=== PATIENT | male | born 1960 | race Caucasian/White ===

== ENCOUNTER 2016-12-02 06:30 | Day surgery (SDC) | payer MEDICAID, SELFPAY ==
[2016-12-02] MEDS ORDERED: Lactated Ringers 1,000 ML IV SCH (06:45)
[2016-12-02] MEDS ORDERED: fentaNYL 100 MCG/2 ML SDV ONE (07:19)
[2016-12-02] MEDS ORDERED: Midazolam 1 MG/ML 2 ML SDV ONE (07:19)
[2016-12-02] MEDS ORDERED: Propofol 200 MG/20 ML SDV ONE (07:19)
[2016-12-02 10:05] VITALS: BP 97/61
--- NOTE | 2016-12-02 12:13 | OR ---
DATE OF PROCEDURE: 12/02/2016 PREOPERATIVE DIAGNOSES: Diverticulosis and diarrhea. POSTOPERATIVE DIAGNOSES: Diverticulosis and diarrhea. PROCEDURE: Colonoscopy to the cecum with random colon biopsies. SURGEON: Hermes Ng MD. ANESTHESIA: IV anesthesia with monitored anesthesia care. INDICATION: This 56-year-old white male is referred for a colonoscopy because of chronic diarrhea. He says he last underwent a colonoscopy about 3 years ago. We know he has diverticulosis. I counseled him for the procedure including risks and alternatives, and he gave his informed consent to proceed. DESCRIPTION OF PROCEDURE: The patient was placed in the left lateral decubitus position. IV anesthesia was administered by the Anesthesia Service. Time-out was held. A rectal exam was performed, which was unremarkable. The flexible video Olympus colonoscope was introduced through his anus, up his rectum, and out his colon all the way to the cecum. Enroute, we saw multiple left-sided diverticula. There was no bleeding or inflammation associated with any of them. Once the cecum was reached, the scope was slowly withdrawn, examining the mucosa throughout. No additional mucosal abnormalities were noted. We did obtain random colonic biopsies throughout the entire colon to rule out microcytic colitis. The scope was retroflexed in the rectum with the distal rectum appearing unremarkable. The scope was straightened and removed. He tolerated the procedure well. Hermes Ng MD /[id number]
== END 2016-12-02 09:25 | disposition home or self-care (01) ==
LOC: JP.SDS 06:30
PROVIDERS: ATTEND Surgery
DX: K57.30 Diverticulosis of large intestine without perforation or abscess without bleeding (principal); N18.9 Chronic kidney disease, unspecified; K21.9 Gastro-esophageal reflux disease without esophagitis
CPT/HCPCS: 45380; 88305; J2250; J2704; J3010; J7120; 38221

== ENCOUNTER 2022-12-12 17:02 | Emergency (ER) | payer MEDICAID ==
[2022-12-12 17:29] VITALS: BP 136/65; PULSE 69
[2022-12-12] MEDS ORDERED: Bacitracin Oint 1 GM U/D Packet TOP ONE (17:36)
[2022-12-12] MEDS ORDERED: Lidocaine 1% 5 ML VIAL INJECT ONE (17:36)
[2022-12-12] MEDS ORDERED: Diphtheria,Pertussis(Acell),Tetanus Vaccine 0.5 ML Syringe IM ONE (17:37)
== END 2022-12-12 18:35 | disposition home or self-care (01) ==
LOC: JP.ED 17:02
DX: S61.512A Laceration without foreign body of left wrist, initial encounter (principal); F17.210 Nicotine dependence, cigarettes, uncomplicated; Z23 Encounter for immunization; W26.8XXA Contact with other sharp object(s), not elsewhere classified, initial encounter
CPT/HCPCS: 12002; 90471; 90715; 99282; 99282-25